=== PATIENT | female | born 2000 | race Asian ===

== ENCOUNTER → 2025-08-02 09:16 | Outpatient (CLI) | payer BC, SELFPAY ==
--- NOTE | 2025-08-02 09:17 | DI.US.S_ITS ---
PROCEDURE: US PELVIC COMPLETE INDICATIONS: Progressively severe dysmenorrhea TECHNIQUE: Real-time scanning was performed of the pelvic organs, with image documentation. Only transabdominal scanning was performed. COMPARISON: None. FINDINGS: Uterus: Uterus is anteverted and normal in size at 7.2 x 2.5 x 3.3 cm. The myometrium is homogeneous. The endometrium measures 8 mm combined thickness. Ovaries: The right ovary measures 2.9 x 1.7 x 2.2 cm, with a calculated ovarian volume of 2 cc. The left ovary measures 1.5 x 0.8 x 1.1 cm, with a calculated ovarian volume of 1.1 cc. The ovaries have a normal sonographic appearance, with note made of a 1.7 cm cystic follicle within the right ovary, which is considered to be within physiologic limits. Less than 12 follicles can be seen in each ovary. No adnexal masses are seen. Normal appearing arterial waveforms are confirmed to each ovary. Other: No pathologic free abdominal or pelvic fluid. IMPRESSION: No imaging explanation is found for this patient's presenting symptoms. We strive to produce accurate, complete, and clear reports of imaging services. To assist us in improving patient care, this report was composed using standard report templates and voice recognition software. Therefore, it may contain abnormal punctuation, insertions and/or omissions. Occasional wrong-word or sound-alike substitutions may occur. Though we review the report and make efforts to correct it, we do recommend that the report be read carefully in proper context to recognize any text inaccuracies. Dictated by: Quentin Gross M.D. on 08/02/2025 at 12:08 Approved by: Quentin Gross M.D. on 08/02/2025 at 12:10
== END ==
LOC: US 09:17
PROVIDERS: Referring Provider Obstetrics & Gynecology; Visit Provider Obstetrics & Gynecology
DX: N94.6 Dysmenorrhea, unspecified (principal)
CPT/HCPCS: 76856

== ENCOUNTER 2025-09-02 22:14 | Emergency (ER) | payer BC, SELFPAY ==
[2025-09-02 22:20] VITALS: BP 134/84; PULSE 77; RESP 16; TEMP 36.1; O2SAT 99; BMI 19.2
--- NOTE | 2025-09-02 22:22 | DI.RAD.S_ITS ---
PROCEDURE: XR CHEST 1V
--- NOTE | 2025-09-02 22:26 | EKG_ITS ---
[facility]
[2025-09-02 23:16] LABS: Add Manual Diff / Slide Review NO; Hematocrit 36.9 % (36-46); Hemoglobin 12.5 g/dL (12.0-16.0); Lymphocytes Absolute Auto 1700 /uL (1100-4500); Mean Corpuscular HGB Conc 33.8 % (30-36); Mean Corpuscular Hemoglobin 30.2 PG (26-34); Mean Corpuscular Volume 89.4 fL (80-100); Platelet Count 262 X10^3/uL (150-400)
[2025-09-02 23:19] VITALS: BP 125/84; PULSE 84; O2SAT 98
[2025-09-02 23:19] LABS: INR 1.0 (0.9-1.3); Prothrombin Time 11.6 SECONDS (9.4-12.5)
[2025-09-02 23:21] LABS: PTT Partial Thromboplastin Tim 36 SECONDS (25.1-36.5)
[2025-09-02 23:23] LABS: Alanine Aminotransferase 13 IU/L (<35); Albumin 4.5 g/dL (3.5-5.0); Albumin Globulin Ratio 1.3 (1.0-2.8); Alkaline Phosphatase 44 U/L (38-126); Blood Urea Nitrogen 8 mg/dL (7-17); Calcium 9.1 mg/dL (8.4-10.2); Carbon Dioxide 25 mmol/L (22-32); Chloride 103 mmol/L (98-107); Creatine Kinase 49 U/L (30-135); Estimated Glomerular Filt Rate > 60 mL/min (>60); Globulin 3.5 g/dL (1.7-4.1); Glucose 101 mg/dL (70-99); HEMOLYSIS < 15 (0-50); Lipase 84 U/L (23-300); Magnesium 2.0 mg/dL (1.6-2.3); Potassium 3.5 mmol/L (3.4-5.1); Sodium 136 mmol/L (137-145); Total Protein 8.0 g/dL (6.3-8.2)
[2025-09-02 23:30] VITALS: BP 105/69; PULSE 65; RESP 19; O2SAT 98
[2025-09-02 23:34] LABS: NT-proBNP (BNP-Adult 18+) 49 pg/mL (<125); Troponin I < 0.012 ng/mL (0.01-0.034)
--- NOTE | 2025-09-02 23:36 | ED_ITS ---
HPI - Chest Pain
--- NOTE | 2025-09-02 23:36 | ED.CHESTPAIN ---
HPI - Chest Pain General Chief Complaint: Chest Pain Stated Complaint: Chest Pain, SOB Time Seen by Provider: 09/02/25 22:33 Source: patient Mode of arrival: Ambulatory History of Present Illness HPI narrative: 25-year-old female with no known chronic cardiopulmonary problems, history of stomach acid reflux, painful periods for which she takes naproxen, having been taking naproxen recent days, complains of anterior precordial chest discomfort onset at rest 4:00 p.m. today, worse with inspiration, radiating straight back to her spine. No cough, fevers, chills. No trauma, falls, new activities. Denies history of blood clots to legs or lungs, no symptoms of leg pain or swelling. No symptoms of fast heart racing symptoms. No associated nausea or vomiting. No abdominal discomfort. He has not tried any specific medications for this since onset. Related Data Previous Rx's ?Medication ?Instructions ?Recorded naproxen 500 mg tablet 500 mg PO Q8H PRN menstrual pain 3 07/24/25 days #30 tabs omeprazole 20 mg capsule,delayed 20 mg PO DAILY upper abdominal 09/03/25 release pain 30 days #30 caps Allergies Allergy/AdvReac Type Severity Reaction Status Date / Time No Known Drug Allergies Allergy Verified 09/02/25 22:20 Patient History Social History Smoking Status: Never smoker Smoking Status: Never smoker Exam Narrative Exam Narrative: GENERAL: Well-developed patient, in mild distress. HEAD: Atraumatic. Normocephalic. EYES: Pupils equal round and reactive. Extraocular motions intact. No scleral icterus. No injection or drainage. ENT: Nose without bleeding, purulent drainage. Throat without erythema, tonsillar hypertrophy or exudate. Airway patent. NECK: Trachea midline. Non tender CARDIOVASCULAR: Regular rate and rhythm without murmurs, gallops, or rubs. RESPIRATORY: Clear to auscultation. Breath sounds equal bilaterally. No wheezes, rales, or rhonchi. GASTROINTESTINAL: Abdomen soft, non-tender, nondistended. EXTREMITIES: No edema or joint tenderness. BACK: Nontender without deformity or crepitance. No flank tenderness. NEURO: AOx3. Motor functions grossly nonfocal. SKIN: No rash or erythema of visible areas Initial Vital Signs Initial Vital Signs: Vital Signs Temperature 97 F L 09/02/25 22:20 Pulse Rate 77 09/02/25 22:20 Respiratory Rate 16 09/02/25 22:20 Blood Pressure 134/84 09/02/25 22:20 Pulse Oximetry 99 09/02/25 22:20 Oxygen Delivery Method Room Air 09/02/25 22:20 Scores HEART Score Heart Score history: Slightly Suspicious Heart Score EKG: Normal Heart Score Age: < 45 years old Heart Score risk factors: No known risk factors Heart Score troponin: < or = to normal limit Heart Score Total: 0 PERC Score Age greater than or equal to 50 years: No Heart rate greater than or equal to 100 bpm: No Room Air O2 Sat less than 95%: No Unilateral leg swelling: No Recent trauma or surgery: No Hemoptysis: No Prior PE or DVT: No Hormone Use: No Total PERC Score: 0 Course Orders Ordered: ED Orders 09/02/25 22:22 XR chest 1V Stat EKG-12 Lead Stat 09/02/25 22:52 Complete Blood Count AUTO DIFF Stat Comprehensive Metabolic Panel Stat Lipase Stat Magnesium Stat NT-proBNP (BNP-Adult 18+) Stat PTT Partial Thromboplastin Dave Stat Prothrombin Time INR Stat Troponin & CK Cardiac Panel Stat 09/03/25 01:15 Troponin I Stat Discontinued Medications Aspirin (Aspirin 81 Mg Chew Tab) 324 mg PO NOW ONE Stop: 09/02/25 22:22 Last Admin: 09/03/25 00:08 Dose: Not Given Documented By: AWA Al Hydrox/Mg Hydrox/Simethicone 30 ml/ Lidocaine HCl 15 ml 0 ml PO NOW ONE Stop: 09/02/25 23:58 Last Admin: 09/03/25 00:05 Dose: 45 ml Documented By: AWA Famotidine (Famotidine 20 Mg/2 Ml Vial) 20 mg IV NOW ONE Stop: 09/03/25 00:16 Last Admin: 09/03/25 00:06 Dose: 20 mg Documented By: AWA Vital Signs Vital signs: Vital Signs - 8 hr 09/02/25 22:20 09/02/25 23:19 09/02/25 23:19 Temperature 97 F L Pulse Rate 77 84 Respiratory Rate 16 Blood Pressure 134/84 125/84 Pulse Oximetry 99 98 Oxygen Delivery Method Room Air 09/02/25 23:30 09/02/25 23:30 09/03/25 00:00 Temperature Pulse Rate 65 Respiratory Rate 19 Blood Pressure 105/69 114/75 Pulse Oximetry 98 Oxygen Delivery Method Room Air 09/03/25 00:00 09/03/25 00:30 09/03/25 00:30 Temperature Pulse Rate 66 68 Respiratory Rate 19 19 Blood Pressure 115/80 Pulse Oximetry 98 98 Oxygen Delivery Method Room Air 09/03/25 01:00 09/03/25 01:00 09/03/25 01:30 Temperature Pulse Rate 64 Respiratory Rate 18 Blood Pressure 113/76 99/63 Pulse Oximetry 97 Oxygen Delivery Method 09/03/25 01:30 09/03/25 02:00 09/03/25 02:00 Temperature Pulse Rate 59 L 57 L Respiratory Rate 18 17 Blood Pressure 110/67 Pulse Oximetry 98 98 Oxygen Delivery Method 09/03/25 02:30 09/03/25 02:30 Temperature Pulse Rate 60 Respiratory Rate 17 Blood Pressure 103/67 Pulse Oximetry 99 Oxygen Delivery Method MDM - Chest Pain Lab Data Attestation: I reviewed the patient's lab results. Lab results narrative: White blood cell count 7300, hemoglobin 12.5, platelets adequate. Glucose 101. Normal renal function, serum CO2, potassium. One hundred thirty-six slight low. Liver functions and lipase normal. Troponin negative/unmeasurable. BNP normal range. 09/02/25 22:52 09/02/25 22:52 Labs: Lab Results 09/02/25 09/03/25 Range/Units 22:52 01:15 WBC 7.3 (4.5-11.0) X10^3/uL RBC 4.13 (4.0-5.2) X10^6/uL Hgb 12.5 (12.0-16.0) g/dL Hct 36.9 (36-46) % MCV 89.4 (80-100) fL MCH 30.2 (26-34) PG MCHC 33.8 (30-36) % RDW 12.7 (11.6-14.8) % Plt Count 262 (150-400) X10^3/uL Neut % (Auto) 68.5 (50-75) % Lymph % (Auto) 23.7 L (25-40) % [place] % (Auto) 6.6 (3-14) % Eos % (Auto) 0.5 L (2-4) % Baso % (Auto) 0.7 (0-2) % Neut # (Auto) 5000 (4582-1374) /uL Lymph # (Auto) 1700 (6838-3436) /uL [place] # (Auto) 500 (0-900) /uL Eos # (Auto) 0 (0-450) /uL Baso # (Auto) 0 (0-100) /uL PT 11.6 (9.4-12.5) SECONDS INR 1.0 (0.9-1.3) APTT 36 (25.1-36.5) SECONDS Sodium 136 L (137-145) mmol/L Potassium 3.5 (3.4-5.1) mmol/L Chloride 103 (98-107) mmol/L Carbon Dioxide 25 (22-32) mmol/L BUN 8 (7-17) mg/dL Creatinine 0.63 (0.52-1.04) mg/dL Estimated GFR > 60 (>60) mL/min BUN/Creatinine Ratio 12.7 (6-22) Glucose 101 H (70-99) mg/dL Calcium 9.1 (8.4-10.2) mg/dL Magnesium 2.0 (1.6-2.3) mg/dL Total Bilirubin 0.5 (0.2-1.3) mg/dL AST 23 (14-36) IU/L ALT 13 (<35) IU/L Alkaline Phosphatase 44 (38-126) U/L Total Creatine Kinase 49 (30-135) U/L Troponin I < 0.012 < 0.012 (0.01-0.034) ng/mL NT-Pro-B Natriuret Pep 49 (<125) pg/mL Total Protein 8.0 (6.3-8.2) g/dL Albumin 4.5 (3.5-5.0) g/dL Globulin 3.5 (1.7-4.1) g/dL Albumin/Globulin Ratio 1.3 (1.0-2.8) Lipase 84 (23-300) U/L Imaging Data Chest x-ray: Radiologist's Impression: [address] [address] XRay Report Signed Patient: Kelsea Saldana MR#: [id number] : 2000 Acct:[id number] Age/Sex: 25 / F Date of Service: 09/02/25 Loc: ED Accession Number: [id number] Procedure: XR chest 1V Ordering Provider: Terrell Leger MD PROCEDURE: XR CHEST 1V INDICATIONS: Chest Pain TECHNIQUE: One view of the chest was acquired. COMPARISON: None. FINDINGS AND IMPRESSION: No dense airspace disease or pleural effusion on this single view study. Normal heart size. Unremarkable osseous structures. Dictated by: Gerardo Monteiro M.D. on 09/02/2025 at 23:57 Approved by: Gerardo Monteiro M.D. on 09/02/2025 at 23:58 ECG Data Attestation: I personally reviewed and interpreted this ECG as follows: Interpretation: 2226, normal sinus rhythm with rate of 81, no obvious ST segment elevation or depression changes. [place] 148, QRS 72, QTC 436. MDM Narrative Medical decision making narrative: 25-year-old female with history of JAYME, painful menstrual periods for which she takes NSAIDs naproxen, has been taking recent naproxen, complains of anterior chest pain worse with deep breathing. No fevers or chills. Afebrile, sirs screen negative. No respiratory distress, lungs clear. No history of DVT/PE. Given GI cocktail. Heart Score = 0 PERC negative for PE EKG without obvious ischemic changes, normal sinus rhythm. Chest x-ray shows no acute changes. See radiology report. Lab data: White blood cell count 7300, hemoglobin 12.5, platelets adequate. Glucose 101. Normal renal function, serum CO2, potassium. One hundred thirty-six slight low. Liver functions and lipase normal. Troponin negative/unmeasurable x2 interval studies. BNP normal range. Symptoms improved after GI cocktail. Above workup negative. Suspected chest pain secondary to JAYME, recent use oral naproxen for painful menstrual periods. Further workup as an outpatient for now. Sent prescription for omeprazole to her listed pharmacy. We discussed GE reflux precautions, dietary exacerbate it is to avoid, medications to avoid. Discharged home. Recheck with PCP advised. Return precautions discussed. Discharge Plan Departure Patient Disposition: Home Clinical Impression: Chest pain due to GERD Activity Restrictions/Additional Instructions: Chest discomfort that seems to be improving with antacid therapy. Very young age to consider coronary artery disease, no obvious cardiac risk factors. Symptoms of gastroesophageal reflux with radiation to the back. Chest x-ray EKGs serial blood test reassuring. Antacids given with some improvement of symptoms. Consider use of [id number] omeprazole antacid 20 mg daily for the next 4 weeks. If possible that the naproxen you been using for menstrual cramps might be bothering your reflux. Consider also avoidance of caffeinated beverages, carbonated beverages, aspirin, Motrin, naproxen, alcohol. Recheck symptoms with your regular doctor in the next few days if not improving. Return to this/nearest emergency department for any change worsening symptoms or any concerns prior. Prescriptions: New omeprazole 20 mg capsule,delayed release(DR/EC) 20 mg PO DAILY 30 Days Qty: 30 0RF No Action naproxen 500 mg tablet 500 mg PO Q8H PRN (Reason: menstrual pain) 3 Days Qty: 30 12RF Rx Instructions: For best effect, start medication 1-2 days prior to expected onset of period. Limit to 3 days each cycle. Stand Alone Forms: Patient Portal/API
[2025-09-03] VITALS: BP 114/75; PULSE 66; RESP 19; O2SAT 98
[2025-09-03] MEDS: MAG HYDROX/ALUMINUM/SIMETH SUS 30 ML, LIDOCAINE VISCOUS 2% 15 ML PO (00:05)
[2025-09-03] MEDS: FAMOTIDINE 20 MG/2 ML VIAL IV (00:06)
[2025-09-03 00:30] VITALS: BP 115/80; PULSE 68; RESP 19; O2SAT 98
[2025-09-03 01:00] VITALS: BP 113/76; PULSE 64; RESP 18; O2SAT 97
[2025-09-03 01:30] VITALS: BP 99/63; PULSE 59; RESP 18; O2SAT 98
[2025-09-03 02:00] VITALS: BP 110/67; PULSE 57; RESP 17; O2SAT 98
[2025-09-03 02:25] LABS: Troponin I < 0.012 ng/mL (0.01-0.034)
[2025-09-03 02:30] VITALS: BP 103/67; PULSE 60; RESP 17; O2SAT 99
== END 2025-09-03 02:47 | disposition home or self-care (01) ==
PROVIDERS: Emergency Provider Emergency Medicine
DX: R07.89 Other chest pain (principal); K21.9 Gastro-esophageal reflux disease without esophagitis
CPT/HCPCS: 71045; 80053; 82550; 83690; 83735; 83880; 84484; 85025; 85610; 85730; 93005; 96374; 99284